=== PATIENT | female | born 1970 | race Caucasian/White ===

== ENCOUNTER 2017-05-04 18:40 | Emergency (ER) | payer OTHER ==
[~2017-05-04] VITALS: Ht 160 cm; Wt 89.4 kg
== END 2017-05-04 21:54 | disposition home or self-care (01) ==
LOC: ER 18:40
DX: T78.3XXA Angioneurotic edema, initial encounter (principal)

== ENCOUNTER → 2017-06-10 | Emergency (ER) | payer OTHER ==
[~2017-06-10] VITALS: Ht 160 cm; Wt 89.4 kg
[~2017-06-10] MED LIST: ENALAPRIL MALEA10 MG; FORTAMET500 MG; JANUVIA50 MG; LIPITOR20 MG; METOPROLOL SUC100 MG
== END | disposition left against medical advice (07) ==
LOC: ER 00:45
DX: Z53.20 Procedure and treatment not carried out because of patient's decision for unspecified reasons (principal)